=== PATIENT | male | born 1975 | race Caucasian/White ===

== ENCOUNTER 2022-10-12 08:23 | Outpatient (CLI) | payer BC, SELFPAY ==
--- NOTE | 2022-10-12 08:15 | MR_ITS ---
[address] [address] Phone:?[phone] Fax:?[phone] Referring Physician Information: Kvng Trujillo [address] [facility] [address] Phone:?[phone] Fax:?[phone] Patient:?Josue Flores D.O.B:?1975 Sex:?Male Phone:?[phone] [facility] MRN:?[id number] Exam Date:?10/12/2022 ? EXAM: MRI OF THE RIGHT KNEE CLINICAL INFORMATION: The patient is a 47-year-old with right knee pain. Evaluate medial joint compartment. PRIOR SURGERY: The patient has a history of prior right knee surgery. COMPARISON STUDIES: There are no prior studies available for comparison. TECHNICAL INFORMATION: Imaging was performed on a high-field, 1.5 Christine MR scanner. Axial proton-density and fat-suppressed T2 imaging was performed in addition to coronal proton-density and STIR imaging. Sagittal proton-density and fat-suppressed proton-density imaging was also performed. FINDINGS: Articular/Extraarticular collections: Effusion: Mild to moderate. Popliteal cyst: Minimal. Loose bodies: No well-defined intra-articular loose bodies are present. Subcutaneous and extraarticular soft tissues: Within normal limits. Osseous structures: There is cortical irregularity and subcortical edema seen along the articular surfaces of the medial femoral condyle, in keeping with the meniscal tearing and chondral loss described below. No evidence for additional bony injury about the knee can be seen. There is no evidence for fracture, contusion, or stress injury. No definite bony abnormalities can be seen in the region of the femoral or tibial tunnels of the patient's ACL reconstruction. Ligamentous structures: ACL: The patient is status post ACL graft reconstruction. The ACL graft appears intact. No definite evidence for cyclops lesion is identified. PCL: Intact and normal in appearance. MCL: Chronic residual changes of a prior incomplete MCL sprain are noted and can be seen on coronal series 9 image 19. No evidence for acute injury is identified and no transverse disruption of MCL fibers is present. LCL: Intact and normal in appearance. Posterolateral corner: Intact and normal in appearance. Posteromedial corner: No posteromedial corner soft tissue injury. Semimembranosus and pes anserine tendons demonstrate no tendinopathy or associated bursitis. Extensor mechanism/Patellar retinacular structures: Patellar tendon: Postsurgical changes of the patellar tendon are present. There is no evidence for acute injury. No transverse tearing of the patellar tendon fibers can be seen. Quadriceps tendon: Intact, without tendinopathy. Retinacula: The medial and lateral retinacula are intact. The medial patellofemoral ligament is intact. Medial compartment: Medial meniscus: The medial meniscus is abnormal in appearance. There is broad- based, complex tearing and degeneration of the posterior horn, seen to best advantage on sagittal series 6 image 20, with involvement of the superior and inferior surfaces as well as the apical free edge. The broad-based area of tearing and degeneration measures approximately 21 mm in mediolateral dimension. No well-defined tearing of the middle or anterior portions of the medial meniscus can be seen. No parameniscal cyst formation is identified. Medial femoral condyle: Full-thickness and near full-thickness chondral loss along the central and posterior articular surfaces of the medial femoral condyle can be seen on sagittal series 6 image 24 and on coronal series 9 image 20. The area of chondromalacia and chondral loss measures 37 mm in anteroposterior dimension and 22 mm in mediolateral dimension. Underlying bony changes are seen. Medial tibial plateau: No chondromalacia, chondral defect, or osteochondral abnormality. Lateral compartment: Lateral meniscus: No evidence for lateral meniscal tearing is present. No evidence for parameniscal cyst formation can be seen. Lateral femoral condyle: No chondromalacia, chondral defect, or osteochondral abnormality. Lateral tibial plateau: No chondromalacia, chondral defect, or osteochondral abnormality. Patellofemoral compartment: Patella: No chondromalacia, chondral defect, or osteochondral abnormality. Trochlea: Full-thickness and near full-thickness chondral loss can be seen along the central articular surfaces of the femoral trochlea on axial series 4 image 16 and on sagittal series 5 image 12. The area of chondromalacia and chondral loss measures 21 mm in mediolateral dimension and 21 mm in craniocaudal dimension. Neurovascular: No definite neurovascular abnormalities are seen. CONCLUSION: 1. Status post ACL graft reconstruction. The ACL graft appears intact. 2. Chronic incomplete MCL sprain. 3. Broad-based, complex tearing of the posterior horn of the medial meniscus. No lateral meniscal tearing is seen. 4. Full-thickness and near full-thickness chondral loss can be seen involving the medial femoral condyle and femoral trochlea as described above. 5. Mild to moderate knee joint effusion and minimal popliteal cyst. [facility] Electronically signed on 10/18/2022 3:07:00 PM by Louis Perez M.D.
== END 2022-10-12 08:24 | disposition home or self-care (01) ==
LOC: MRI 08:24
PROVIDERS: PCP Family Medicine; Visit Provider Physician Assistant
DX: M25.561 Pain in right knee (principal); S83.411A Sprain of medial collateral ligament of right knee, initial encounter; M23.221 Derangement of posterior horn of medial meniscus due to old tear or injury, right knee; M25.461 Effusion, right knee
CPT/HCPCS: 73721